=== PATIENT | female | born 1960 | race Caucasian/White ===

== ENCOUNTER 2018-02-13 14:01 | Outpatient (CLI) | payer BC, OTHER ==
--- NOTE | 2018-02-13 14:58 | RAD ---
LUMBAR SPINE THREE VIEWS: History: Back pain, disability evaluation. FINDINGS/IMPRESSION: Mild degenerative changes are present. No fracture, subluxation, or bony destructions identified. POS: OFF
--- NOTE | 2018-02-13 16:13 | RAD ---
TWO VIEWS OF THE LEFT KNEE 02/13/18 COMPARISON: None. HISTORY: Disability evaluation. FINDINGS: Mild medial and lateral compartment narrowing. Mild patellofemoral joint space narrowing. Mild enthes ophyte formation at the insertion of the quadriceps tendon. No displaced fracture or dislocation. IMPRESSION: No acute findings. POS: [facility]
== END 2018-02-13 14:02 | disposition home or self-care (01) ==
LOC: NAV RAD 14:01
PROVIDERS: ATTEND Family Medicine
DX: M15.9 Polyosteoarthritis, unspecified (principal); M54.5 Low back pain; M47.896 Other spondylosis, lumbar region
CPT/HCPCS: 72100